=== PATIENT | female | born 1980 | race Caucasian/White ===

== ENCOUNTER 2017-09-02 19:04 | Emergency (ER) | payer MEDICAID ==
[~2017-09-02] VITALS: Ht 149.9 cm; Wt 67.8 kg
[~2017-09-02 19:04] MED LIST: ACETTAB3 OR; ALPRAZOLAM0.25 M1 PO; BACTRIM DS1 TAB PO; BACTROBAN21 EX; BC HEADACH1 OR; CEFTIN500 MG OR; CIPR1 PO; CIPRO500 MG OR; CIPROFLOXACN500 MG PO; CLONIDINE0.1 MG PO; DOXYCYC MONO100 MG OR; FLOXIN OTIC0.3 % OT; GLYBURIDE2.5 M1 PO; IMITREX100 M1 PO; IMITREX25 MG OR; KEFLEX500 MG PO; LORTAB 10 PO; LORTAB 5 OR; MACROBID100 MG PO; NIFEDIPINE OR; NO; NO HOME MEDS; PERCOCET 5/325M1 TAB OR; PRENATA3 OR; PYRIDIUM200 MG OR; ULTRAM50 M1 PO; ULTRAM50 MG PO; ZOLENE HC AD
[2017-09-02] MEDS ORDERED: PERCOCET 10/31 COMBO PO (19:16)
[2017-09-02] MEDS ORDERED: ZANTAC150 M1 PO (19:17)
[2017-09-02] MEDS ORDERED: ZITHROMAX500 MG PO (19:38)
[2017-09-02 19:40] VITALS: BP 145/87
== END 2017-09-02 19:40 | disposition home or self-care (01) | DRG 159 ==
LOC: ED 19:04
DX: K03.81 Cracked tooth (principal); O99.619 Diseases of the digestive system complicating pregnancy, unspecified trimester; K80.20 Calculus of gallbladder without cholecystitis without obstruction; O99.330 Smoking (tobacco) complicating pregnancy, unspecified trimester; F17.210 Nicotine dependence, cigarettes, uncomplicated; Z3A.00 Weeks of gestation of pregnancy not specified

== ENCOUNTER 2018-12-03 15:36 | Emergency (ER) | payer SELFPAY ==
[~2018-12-03] VITALS: Ht 149.9 cm; Wt 75.0 kg
[~2018-12-03 15:36] MED LIST changes: +PERCOCET 10/31 COMBO PO; +ZANTAC150 M1 PO; +ZITHROMAX500 MG PO
[2018-12-03 16:41] LABS: URINE BILIRUBIN - DIPSTICK NEGATIVE (NEGATIVE); URINE BLOOD DIPSTICK NEGATIVE (NEGATIVE); URINE COLOR YELLOW; URINE GLUCOSE - DIPSTICK NEGATIVE (NEGATIVE); URINE KETONE NEGATIVE (NEGATIVE); URINE LEUK ESTERASE NEGATIVE (NEGATIVE); URINE NITRITE - DIPSTICK NEGATIVE (Negative); URINE PH 5.5 (4.5-8.0); URINE PROTEIN - DIPSTICK NEGATIVE (NEG-TRACE); URINE SPECIFIC GRAVITY >=1.030; URINE UROBILINOGEN - DIPSTICK 0.2 E.U./dL (0.2)
[2018-12-03] MEDS ORDERED: ROBITUSSIN AC10 ML PO (17:32)
[2018-12-03] MEDS ORDERED: ZPAK PO (17:32)
[2018-12-03 17:49] VITALS: BP 167/80
== END 2018-12-03 17:50 | disposition home or self-care (01) | DRG 153 ==
LOC: ED 15:36
PROVIDERS: Emergency Medicine
DX: J06.9 Acute upper respiratory infection, unspecified (principal); F17.200 Nicotine dependence, unspecified, uncomplicated

== ENCOUNTER 2019-03-14 | Emergency (ER) | payer OTHER ==
[~2019-03-14] MED LIST changes: +ROBITUSSIN AC10 ML PO; +ZPAK PO
[2019-03-14] MEDS ORDERED: PRILOSEC20 MG/CAP PO (22:36)
[2019-03-14] MEDS ORDERED: ZESTRIL10 M1 PO (22:36)
[2019-03-16] MEDS ORDERED: CEPHALEXIN500 MG PO (12:23)
[2019-03-16] MEDS ORDERED: SINEQUAN25 MG PO (12:24)
[2019-03-16] MEDS ORDERED: PEPCID20 MG PO (12:25)
[2019-03-16] MEDS ORDERED: MOTRIN200 MG PO (12:26)
[2019-03-16] MEDS ORDERED: CLARITIN10 M1 PO (12:27)
[2019-03-16] MEDS ORDERED: BACTRIM DS1 TAB PO (12:28)
== END 2019-03-14 22:30 | DRG 603 ==
PROC: 0H96XZZ Drainage of Back Skin, External Approach (ICD-10-PCS; principal; 2019-03-14)
DX: L02.212 Cutaneous abscess of back [any part, except buttock and flank] (principal); L02.414 Cutaneous abscess of left upper limb; L02.413 Cutaneous abscess of right upper limb; F17.200 Nicotine dependence, unspecified, uncomplicated

== ENCOUNTER 2019-03-19 | Inpatient (IN) | payer OTHER ==
[2019-03-16] VITALS (10 sets, daily range): BP systolic 85–107; BP diastolic 49–72
--- NOTE | 2019-03-16 09:30 | NUR ---
REPORT RECEIVED FROM LISA FROM [facility].
--- NOTE | 2019-03-16 09:50 | NUR ---
PT AMBULATED TO MED/SURG ROOM 277 IN STABLE CONDITION ACCOMPANIED BY X1 GUARD.WRISTS AND ANKLES SHACKLED;PT A&O X4, ORIENTED TO ROOM AND CALL LIGHT SYSTEM;WT AND VS OBTAINED;PAIN SCALE AND REPORTING EDUCATED;PT REPORTS I&D TO UPPER BACK ABSCESS DONE Friday03/14/2019 IN ER BY , ACCORDING TO AI JOY NURSE SITE HAS GOTTEN WORSE AND PT IS STILL HAVING TEMPS;ASSESSMENT COMPLETED;RESPIRATIONS EVEN AND UNLABORED ON RA,CLEAR LUNG SOUNDS;ABDOMEN SOFT ON PALPATION AND ACTIVE IN ALL 4 QUADRANTS, PT UNAWARE OF LAST BM;STRONG PEDAL PULSES;DRESSING TO UPPER BACK REMAINS IN PLACE AND ACCORDING TO PT WAS PLACED TODAY 03/16/19;SKIN OTHERWISE INTACT;#20G TO RFA PLACED ON 4TH ATTEMPT BY JIM,KENDRA;NPO DIET REINFORCED AND PT VERBALIZES UNDERSTANDING;PT DENIES ANY ADDITIONAL NEEDS AT THIS TIME AND IS ENCOURAGED TO CALL FOR ASSISTANCE IF NEEDED;CALL LIGHT IN REACH;WILL CONTINUE TO MONITOR
--- NOTE | 2019-03-16 10:20 | NUR ---
CURRENTLY IN SURGERY.SPOKE WITH IWONA HASKINS REGARDING PT ARRIVING TO FLOOR. DIVINE TO NOTIFY OF PT STATUS.
--- NOTE | 2019-03-16 12:12 | NUR ---
PT RESTING IN SEMI FOWLERS POSITION;RESPIRATIONS EVEN AND UNLABORED ON RA;PT REQUESTS SOMETHING TO DRINK,NPO DIET REINFORCED;IV SITE PATENT;ASSESSMENT REMAINS UNCHANGED AT THIS TIME;ENCOURAGED TO CALL FOR ASSISTANCE IF NEEDED;CALL LIGHT IN REACH;WILL CONTINUE TO MONITOR
--- NOTE | 2019-03-16 12:50 | NUR ---
AT BEDSIDE DISCUSSING POC INCLUDING PLANS TO TAKE PT TO OR.
--- NOTE | 2019-03-16 13:10 | NUR ---
INFORMED CONSENT OBTAINED FOR INCISION AND DRAINAGE OF BACK.ALL BENEFITS AND RISKS DISCUSSED AND PT VERBALIZES UNDERSTANDING OF PROCEDURE.
--- NOTE | 2019-03-16 13:29 | NUR ---
PT TRANSPORTED TO OR IN STABLE CONDITION VIA [facility] ACCOMPANIED BY KENDRA ROJAS
--- NOTE | 2019-03-16 16:10 | NUR ---
PT ARRIVED BACK TO MED/SURG ROOM 277 IN STABLE CONDITION VIA STRETCHER ACCOMPANIED BY CELESTINO FORBES RN AND KENDRA NATARAJAN;PT AMBULATED WITH A STEADY GAIT TO BEDSIDE;VS OBTAINED AND TO BE OBTAINED PER [facility] POST OP PROTCOL,VS STABLE;RESPIRATIONS EVEN AND UNLABORED ON RA;IV SITE INFUSING LR @ 100ML/HR AND ABX HUNG AT THIS TIME;PT REPORTS MINIMAL PAIN TO UPPER BACK,PAIN SCALE AND REPORTING EDUCATED;DRESSING TO UPPER BACK CDI;FRESH WATER PROVIDED PER REQUEST;PT DENIES ANY ADDITIONAL NEEDS;ENCOURAGED TO CALL FOR ASSISTANCE IF NEEDED;CALL LIGHT IN REACH;WILL CONTINUE TO MONITOR
--- NOTE | 2019-03-16 20:00 | NUR ---
ASSESSMENT COMPLETED. IV SITE PATENT AND ORDERED IVF INFUSING WELL. DRESSING IS CDI TO UPPER MID BACK; B/P CHECKED AND 107/72 AT THIS TIME. PT. C/O BACK PAIN 09/16, WILL MEDICATE FOR PAIN WHEN PT. IS BACK TO BED. INCENTIVE SPIROMETER IN ROOM AND SCD'S APPLIED AT THIS TIME. ENCOURAGED TO DEEP BREATHE. GUARD IN THE ROOM. PT. TOLERATING DIET WELL. CALL LIGHT IS IN REACH.
--- NOTE | 2019-03-16 20:13 | NUR ---
PT. MEDICATED WITH ORDERED PRN DILAUDID AND ZOFRAN FOR C/O BACK PAIN 09/16 ALONG WITH SCHED MEDS. ADMINISTRERED BY PARUL MACEDO. WILL REASSESS.
--- NOTE | 2019-03-16 23:52 | NUR ---
PT. MEDDICATED WITH ORDERED/SCHEDULED TORADOL AND REPORTS PAIN 09/16, WILL REASSESS. DRESSING REMAINS CDI TO MID UPPER BACK. PO FLUIDS OFFERED. VSS. CALL LIGHT IS IN REACH.
[2019-03-17] VITALS (10 sets, daily range): BP systolic 74–124; BP diastolic 49–74
--- NOTE | 2019-03-17 02:33 | NUR ---
PT. C/O BACK PAIN 11/17 AND MEDICATED WITH ORDERED PRN DILAUDID; WILL REASSESS. ALSO REPORTS PAIN TO NECK AND WARM PACKS APPLIED. CALL LIGHT IS IN REACH. GUARD IS AT BEDSIDE.
--- NOTE | 2019-03-17 03:23 | NUR ---
PT. CONTINUES TO C/O UPPER BACK PAIN POST DILAUDID, MEDICATED WITH ORDERED PER PERCOCET, WILL REASSESS. PO FLUIDS OFFERED AND SNACK PROVIDED. CALL LIGHT IN REACH. GUARD AT BEDSIDE.
--- NOTE | 2019-03-17 07:10 | NUR ---
REPORT RECEIVED FROM KENDRA RUBI;PT APPEARS TO BE SLEEPING IN SUPINE POSITION WITH X1 GUARD AT BEDSIDE AND LEGS SHACKLED TO BEDSIDE;RESPIRATIONS EVEN AND UNLABORED ON RA;NO S/S OF DISTRESS NOTED;IV FLUIDS INFUSING WITH EASE PER ORDER;ALL SAFETY PRECAUTIONS IN PLACE WITH BED IN THE LOWEST POSITION AND CALL LIGHT IN REACH;WILL CONTINUE TO MONITOR
--- NOTE | 2019-03-17 09:00 | NUR ---
PT RESTING IN SEMI FOWLERS POSITION WITH X1 GUARD AT BEDSIDE AND ANKLES SHACKLED TO BEDSIDE,A&O X3;VS OBTAINED AND ASSESSMENT COMPLETED,CURRENT BP 85/58 HR 89.MD TO BE NOTIFIED;PT REPORTS UPPER BACK PAIN RATING 9/10 ON THE PAIN SCALE AND REQUESTS PAIN MEDICATION,PT MEDICATED WITH PRN MOTRIN 600MG PO FOR PAIN AT THIS TIME;RESPIRATIONS EVEN AND UNLABORED ON RA,CLEAR LUNG SOUNDS;ABDOMEN SOFT ON PALPATION AND ACTIVE IN ALL 4 QUADRANTS, PRUNE JUICE PROVIDED;STRONG PEDAL PULSES;PT IS POST OP I&D UPPER BACK ABCESS,DRESSINGS CHANGED AT THIS TIME PER ORDER;#20G TO RFA INFUSING D5 1/2 NS @ 100ML/HR,SITE APPEARS HEALTHY;PT DENIES ANY ADDITIONAL NEEDS AND IS ENCOURAGED TO CALL FOR ASSISTANCE IF NEEDED;CALL LIGHT IN REACH;WILL CONTINUE TO MONITOR
--- NOTE | 2019-03-17 10:13 | NUR ---
PT CURRENT BP 82/59 HR 103 AND PT REPORTING SEVERE BACK PAIN;CALLED 'S OFFICE AND SPOKE WITH TITA REGARDING PT BP;AWAITING CALL BACK;WILL CONTINUE TO MONITOR
--- NOTE | 2019-03-17 10:15 | NUR ---
BP RE-CHECK 82/59 HR 103, NOTIFIED AND NEW ORDERS RECEIVED.
--- NOTE | 2019-03-17 12:10 | NUR ---
PT RESTING IN SEMI FOWLERS POSITION WITH X1 GUARD AT BEDSIDE;RESPIRATIONS EVEN AND UNLABORED ON RA;PT REPORTS UPPER BACK PAIN RATING 10/10 ON THE PAIN SCALE,PT MEDICATED WITH SCHEDULED TORADOL PER ORDER;BP CURRENTLY 86/54 HR 94;IV FLUIDS INFUSING TO RFA WITH EASE;DRESSING CDI;ADDITIONAL PILLOW PROVIDED PER REQUEST;ENCOURAGED TO CALL FOR ASSISTANCE IF NEEDED;CALL LIGHT IN REACH;WILL CONTINUE TO MONITOR
--- NOTE | 2019-03-17 13:36 | NUR ---
PT CURRENT BP 74/50, ASYMPTOMATIC TO LOW BP; NOTIFIED AND ORDERS OBTAINED FOR STAT CHEST CT AND TO CONSULT ;WILL CONTINUE TO MONITOR
--- NOTE | 2019-03-17 14:00 | NUR ---
PT TRANSPORTED TO [facility] IN STABLE CONDITON VIA WHEELCHAIR ACCOMPANIED BY VOLUNTEER AND GUARD.
--- NOTE | 2019-03-17 14:20 | NUR ---
PT TRANSPORTED BACK TO MED/SURG ROOM 277 IN STABLE CONDITION VIA WHEELCHAIR ACCOMPANIED BY VOLUNTEER AND GUARD.
--- NOTE | 2019-03-17 15:15 | NUR ---
PT RESTING IN SEMI FOWLERS POSITION WITH GUARD AT BEDSIDE;RESPIRATIONS EVEN AND UNLABORED ON RA;PT DENIES ANY CURRENT NEEDS;IV FLUIDS BEING BOLUSED TO RFA PER ORDER;GREY CATHETER INITIATED AT THIS TIME AND PT TOLERATED WELL;NPO DIET REINFORCED;VS IMPROVING BP 93/60;PT DENIES ANY ADDITIONAL NEEDS AND IS ENCOURAGED TO CALL FOR ASSISTANCE IF NEEDED;CALL LIGHT IN REACH;WILL CONTINUE TO MONITOR
--- NOTE | 2019-03-17 20:33 | NUR ---
PT MEDICATED ORDERS PROVIDE AND ASSESSMENT COMPLETED. PT REPORTS PAIN 8/10 IN UPPER BACK SHARP/STABBING. PT ASKING FOR MORE JUICE/JELLOW FOR CLEAR LIQUID DIET/PROVIDED. NO S/O IDSTRESS NOTED. GUARD X1 AT BEDSIDE AND TV ON. IV SITE APPEARS HEALTHY AT THIS TIME 20 TO RFA W/ANTIBOITIC THERAPY RUNNIING. GREY CATHETER DRAINING TO GRAVITY CLEAR YELLOW. PT REPORTS BM X1 LARGE SEVERAL HOURS AGO.
--- NOTE | 2019-03-17 23:57 | NUR ---
PT MEDICATED W/IV ANTIBIOTIC THERAPY. PT WAS SLEEPING SOUNDLY. NO S/O DISTRESS NOTED. CALL LIGHT AT SIDE.
--- NOTE | 2019-03-18 00:30 | NUR ---
IV SITE FOUND INFILTRATED. PT DENIES PAIN AT SITE. SITE APPEARS SLIGHTLY REDDENED AND SMALL AMOUNT OF EDEMA AT SITE.
--- NOTE | 2019-03-18 01:10 | NUR ---
MULTIPLE ATTEMPTS HAVE BEEN MADE TO OBTAIN IV SITE, WILL NOTIFY PAPER REWINDER OPERATOR FOR ASSISTANCE.
--- NOTE | 2019-03-18 02:15 | NUR ---
REGIONAL TRANSPORTATION MANAGER IN TO OBTAIN IV SITE.
--- NOTE | 2019-03-18 02:41 | NUR ---
MAINTENANCE PORTER AND ED NURSE IN W/PT ATTEMPTING TO OBTAIN IV SITE.
[2019-03-18 03:46] VITALS: BP 119/79
--- NOTE | 2019-03-18 04:09 | NUR ---
PT MEDICATED FOR PAIN AND IV ANTIBIOTIC THERAPY. PT ASKING FOR COFFEE/PROVIDED. REPORTS PAIN 10/10 ON PAIN SCALE.
[2019-03-18 05:08] LABS: IMMATURE GRANULOCYTES 0.7 % (0.0-5.0); MEAN CORPUSCULAR HGB 27.1 pG CALC (26.0-32.0); MEAN CORPUSCULAR HGB CONC 31.5 g/L CALC (32.0-36.0); NEUT# 5.69 thou/uL (2.00-7.15); RED BLOOD COUNT 3.43 mill/uL (4.20-5.60); RED CELL DISTRI WIDTH 15.9 % (11.5-15.5)
[2019-03-18 05:13] LABS: HEMATOCRIT 29.5 % (37.0-47.0); HEMOGLOBIN 9.3 g/dl (12.0-16.0)
[2019-03-18 05:16] LABS: ANION GAP 14 (6-22 (CALC)); BUN 10 mg/dL (7-17); BUN/CREATININE RATIO 16 (12-20 (CALC)); CARBON DIOXIDE 21 mmol/l (22-30); CHLORIDE 107 mmol/l (95-108); CREATININE 0.6 mg/dL (0.5-1.0); GFR > 60 ML/MIN (>=60 (CALC)); GFR FOR AFR.AMER. > 60 ML/MIN (>=60 (CALC)); POTASSIUM 4.9 mmol/l (3.5-5.1); SODIUM 138 mmol/l (137-146)
--- NOTE | 2019-03-18 05:47 | NUR ---
PT MEDICATED W/PAIN MEDICATION ORDERS PROVIDE. DRESSING CHANGE TO WOUND ON MID UPPER BACK. PT TOLERATED WELL, BUT W/QUITE A BIT OF PAIN UPON DRESSING CHANGE. PT AMBULATED TO RESTROOM TO WASH FACE AND BRUSH TEETH. NEW GUARD X1 AT BEDSIDE.
[2019-03-18 08:00] VITALS: BP 92/60
[2019-03-18 10:40] VITALS: BP 112/73
[2019-03-18 14:50] VITALS: BP 127/74
[2019-03-18 19:48] VITALS: BP 139/93
--- NOTE | 2019-03-18 22:13 | NUR ---
PT MEDICATED FOR PAIN AND PM MEDICATIONS. ASSESSMENT COMPLETED AT THIS TIME. DRESSING TO MID UPPER BACK CDI. PT REFUSED DRESSING CHANGE AT THIS TIME. WILL DISCUSS CHANGING LATER. PT STATED, "THEY CHANGED IT TWICE TODAY ALREADY." IV ANTIBIOTIC RUNNING AT THIS TIME. SNACKS/DRINKS PROVIDE.
[~2019-03-19] MED LIST changes: +CEPHALEXIN500 MG PO; +CLARITIN10 M1 PO; +MOTRIN200 MG PO; +PEPCID20 MG PO; +PRILOSEC20 MG/CAP PO; +SINEQUAN25 MG PO; +ZESTRIL10 M1 PO
--- NOTE | 2019-03-19 00:40 | NUR ---
PT SLEEPING AT THIS TIME. GUARD X1 AT BEDSIDE.
[2019-03-19 03:53] VITALS: BP 126/86
--- NOTE | 2019-03-19 03:54 | NUR ---
PT SLEEPING SOUNDLY I ENTERED THE ROOM GUARD X1 AT BEDSIDE. ANTIBIOTIC THERAPY ADMINISTERED, UPON INITIAL FLUSH PT C/O BURNING, NO BLOOD RETURNED RECEIVED, REDNESS AT SITE. SITE REMOVED. WILL CALL TO GET ASSISTANCE W/OBTAINING NEW IV SITE. PT WAS A VERY DIFFICULT STICK PREVIOUS NIGHT W/MULTIPLE ATTEMPTS BY STAFF NECESSARY. IV ANTIBIOTIC THERAPY HELD AT THIS TIME AWAITING GOOD IV SITE ACCESS.
--- NOTE | 2019-03-19 05:38 | NUR ---
NEW IV SITE OBTAINED 22 R.THUMB. IV ANTIBIOTIC THERAPY ADMINISTERED AT THIS TIME. PT MEDICATED FOR PAIN 10/10 IN UPPER BACK AND HEAD. PT C/O MIGRAINE HEADACHE.
[2019-03-19 05:43] LABS: HEMATOCRIT 29.8 % (37.0-47.0); HEMOGLOBIN 9.5 g/dl (12.0-16.0); MEAN CELL VOLUME 84.7 fL CALC (80.0-100.0); MEAN CORPUSCULAR HGB CONC 31.9 g/L CALC (32.0-36.0); RED BLOOD COUNT 3.52 mill/uL (4.20-5.60); RED CELL DISTRI WIDTH 15.6 % (11.5-15.5)
[2019-03-19 08:15] VITALS: BP 98/58
[2019-03-19 15:49] VITALS: BP 119/80
--- NOTE | 2019-03-19 18:37 | NUR ---
Pt continues to c/o of migraine, stating that she "feels pressure" regardless of position. PRN pain meds administered. Discussed with FAMILY LITERACY COORDINATOR additional medication need, will f/u.
[2019-03-19 18:52] VITALS: BP 125/79
--- NOTE | 2019-03-19 19:00 | NUR ---
REPORT RECEIVED FROM KENDRA COLLINS. PT RESTING IN BED. NO S/S OF DISTRESS AT THIS TIME. WILL CONTINUE TO MONITOR.
--- NOTE | 2019-03-19 20:19 | NUR ---
PT RESTING IN BED ALERT AND ORIENTED. RESPIRATIONS ARE ENVEN AND UNLABOREDON RA. LUNGS SOUND CLEAR. PEDAL PULSES WEAK. PT REPORTS HAVING A HEAD ACHE RATING HER PAIN 8/10 STATING IN FEELS LIKE PRESSURE IN HER HEAD. PT MEDICATED PER EMAR ORDERS. OFFICER X1 AT BEDSIDE, PT FROM THE DETENTION. SAFETY PRECAUTIONS IN PLACE. WILL CONTINUE TO MONITOR.
--- NOTE | 2019-03-19 21:45 | NUR ---
PT RESTING IN BED. DRESSING CHANGED PER ORDERS. PT TOLERATED WELL. CALL BAILEY WITHIN REACH. OFFICER X1 AT BED SIDE. SAFETY PRECAUTIONS IN PLACE.
--- NOTE | 2019-03-20 00:25 | NUR ---
PT RESTING IN BED. PT REPORTS HAVING PAIN OF 5/10. PT MEDICATED VT EMAR ORDERS. OFFICER AT BEDSIDE. SAFETY PRECAUTIONS IN PLACE. WILL CONTINUE TO MONITOR.
[2019-03-20 04:00] VITALS: BP 107/73
--- NOTE | 2019-03-20 04:00 | NUR ---
PT RESTING IN BED. RESPIRATIONS EVEN AND UNLABORED ON RA. NO S/S OF DISTRESS AT THIS TIME. WILL CONTINUE TO MONITOR.
[2019-03-20 05:37] LABS: HEMATOCRIT 32.4 % (37.0-47.0); HEMOGLOBIN 10.2 g/dl (12.0-16.0); IMMATURE GRANULOCYTES 2.6 % (0.0-5.0); MEAN CORPUSCULAR HGB 26.8 pG CALC (26.0-32.0); MEAN CORPUSCULAR HGB CONC 31.5 g/L CALC (32.0-36.0); NEUT# 3.88 thou/uL (2.00-7.15); RED BLOOD COUNT 3.81 mill/uL (4.20-5.60); RED CELL DISTRI WIDTH 15.5 % (11.5-15.5)
[2019-03-20 07:52] VITALS: BP 130/85
--- NOTE | 2019-03-20 07:52 | NUR ---
PT RESTING IN BED, NO SIGNS OF DISTRESS NOTED. RESP EVEN AND UNLABORED. PT EATING BREAKFAST. VOICES NO NEEDS OR COMPLAINTS AT THIS TIME. VITALS OBTAINED, CALL LIGHT IN REACH,CONTINUE TO MONITOR.
--- NOTE | 2019-03-20 08:35 | NUR ---
PT RESTING IN BED, DISCUSSED POC, MEDICATED PER MAY. PT ALERT AND ORIENTED X3, NO EDEMA. DISCUSSED DRESSING CHANGE, PT AGREES. X2 INCISIONS TO UPPER BACK, NOTED PURULENT DRAINAGE TO GAUZE, PACKED WOUNDS WITH NEW DRY GAUZE, PT TOLERATED WELL. SECURED WITH ABD AND TAPE. PT REQUESTING PAIN MEDICATION. WILL RETURN WITH PAIN MED. CALL LIGHT IN REACH, GAURD AT BEDSIDE. CONTINUE TO MONITOR.
[2019-03-20] MEDS ORDERED: CLINDAMYCIN HC150 MG PO (12:04)
--- NOTE | 2019-03-20 14:29 | NUR ---
Discharge instructions given. Patient verbalizes understanding of same. Dis[facility]. All belongings sent with pt.
--- NOTE | 2019-03-20 14:34 | NUR ---
REPORT GIVEN TO NURSE PALMA IN MEDICAL AT [facility].
== END 2019-03-20 12:26 | DRG 581 ==
PROVIDERS: Nurse Practitioner Family; ADMIT Surgery
PROC: 0J970ZZ Drainage of Back Subcutaneous Tissue and Fascia, Open Approach (ICD-10-PCS; principal; 2019-03-16)
PROC: 0T9B70Z Drainage of Bladder with Drainage Device, Via Natural or Artificial Opening (ICD-10-PCS; 2019-03-17)
DX: L02.212 Cutaneous abscess of back [any part, except buttock and flank] (principal); I10 Essential (primary) hypertension; I95.81 Postprocedural hypotension; R33.8 Other retention of urine; G43.909 Migraine, unspecified, not intractable, without status migrainosus; B95.62 Methicillin resistant Staphylococcus aureus infection as the cause of diseases classified elsewhere; Z87.891 Personal history of nicotine dependence
CPT/HCPCS: J0131; J1650

== ENCOUNTER 2023-11-22 23:45 | Emergency (ER) | payer OTHER, MEDICAID ==
[~2023-11-22] VITALS: Ht 149.9 cm; Wt 72.0 kg
[~2023-11-22 23:45] MED LIST changes: +CLINDAMYCIN HC150 MG PO
[2023-11-22 23:51] VITALS: BP 127/82
[2023-11-22] MEDS ORDERED: IBUPROFEN 800 MG/TAB PO ONE (23:55)
[2023-11-22] MEDS ORDERED: SUMAtriptan SUCCINATE 25 MG TAB PO ONE (23:55)
[2023-11-22] MEDS ORDERED: GUAIFENESIN 600 MG/TAB PO ONE (23:55)
[2023-11-22] MEDS ORDERED: MOTRIN800 MG PO (23:59)
[2023-11-22] MEDS ORDERED: NASACORT A55 MCG/ACT NS (23:59)
[2023-11-22] MEDS ORDERED: CLARITIN-D1 TAB PO (23:59)
[2023-11-23] VITALS: BP 129/70
[2023-11-23 00:15] VITALS: BP 126/85
[2023-11-23 00:25] VITALS: BP 126/85
== END 2023-11-23 00:30 | disposition home or self-care (01) | DRG 153 ==
LOC: ED 23:45
DX: J01.90 Acute sinusitis, unspecified (principal); I10 Essential (primary) hypertension

== ENCOUNTER 2024-05-27 13:23 | Emergency (ER) | payer OTHER ==
[~2024-05-27] VITALS: Ht 149.9 cm; Wt 68.0 kg
[2024-05-27] VITALS (20 sets, daily range): BP systolic 90–138; BP diastolic 51–96
[~2024-05-27 13:23] MED LIST changes: +ADVAIR DISK1 INH; +ATORVASTATIN CA10 MG PO; +CLARITIN-D1 TAB PO; +IMITREX100 MG PO; +MOTRIN800 MG PO; +NASACORT A55 MCG/ACT NS; +PREDNISONE50 MG PO; +VIBRAMYCIN100 M2 PO
[2024-05-27] MEDS ORDERED: KETOROLAC TROMETHAMINE 30 MG/ML SDV IV ONE (15:15)
[2024-05-27] MEDS ORDERED: SODIUM CHLORIDE 0.9% 1,000 ML IV ONE (15:15)
[2024-05-27] MEDS ORDERED: ORPHENADRINE CITRATE 30 MG/ML AMP IV ONE (15:15)
[2024-05-27] MEDS ORDERED: ONDANSETRON HCl 4 MG/2 ML SDV IV ONE (15:15)
[2024-05-27 15:45] LABS: BASO% 0.6 % (0-3); EOS% 9.2 % (0-8); IMMATURE GRANULOCYTES 0.1 % (0.0-5.0); LYMPH% 15.4 % (15-41); MEAN CORPUSCULAR HGB 26.2 pG CALC (26.0-32.0); MEAN CORPUSCULAR HGB CONC 31.9 g/dL CAL (32.0-36.0); MONO% 4.2 % (2-13); NEUT# 5.04 thou/uL (2.00-7.15); NEUT% 70.5 % (42-76); RED BLOOD COUNT 6.07 mill/uL (4.20-5.60); RED CELL DISTRI WIDTH 14.5 % (11.5-15.5)
[2024-05-27 15:48] LABS: HEMATOCRIT 49.8 % (37.0-47.0); HEMOGLOBIN 15.9 g/dl (12.0-16.0)
[2024-05-27 15:50] LABS: URINE BLOOD DIPSTICK Negative (NEGATIVE); URINE GLUCOSE - DIPSTICK 100 mg/dL (NEGATIVE); URINE KETONE 15 mg/dL (NEGATIVE); URINE LEUK ESTERASE Negative (NEGATIVE); URINE NITRITE - DIPSTICK Negative (Negative); URINE PH 5.5 (4.5-8.0); URINE PROTEIN - DIPSTICK 100 mg/dL (NEG-TRACE); URINE SPECIFIC GRAVITY 1.025
[2024-05-27 15:51] LABS: URINE COLOR Amber
[2024-05-27 15:59] LABS: URINE CALCIUM OXALATE CRYSTALS FEW lpf; URINE RENAL EPITHELIAL CELLS FEW hpf; URINE TRANSITIONAL EPI. CELLS FEW hpf
[2024-05-27 16:00] LABS: URINE BACTERIA FEW hpf; URINE RBC 0-2 RBC/hpf (0-5); URINE SQUAMOUS EPITHELIAL CELL FEW EPI/hpf (0-FEW)
[2024-05-27 16:01] LABS: URINE COARSE GRANULAR CAST FEW lpf; URINE FINE GRAN CAST FEW lpf; URINE HYALINE CAST MANY lpf (NONE-RARE)
[2024-05-27 16:05] LABS: ALBUMIN 5.1 g/dL (3.2-5.0); CREATININE 0.8 mg/dL (0.5-1.0); POTASSIUM 3.8 mmol/l (3.5-5.1); TOTAL PROTEIN 9.6 g/dL (6.3-8.2)
[2024-05-27 16:06] LABS: BILIRUBIN, TOTAL 1.1 mg/dL (0.02-1.3)
[2024-05-27] MEDS ORDERED: MORPHINE SULFATE 4 MG/ML VIAL IV ONE (17:55)
[2024-05-27] MEDS ORDERED: PROGESTERONE200 MG PO (19:26)
[2024-05-27] MEDS ORDERED: METHOCARBAMOL500 MG PO (19:26)
[2024-05-27] MEDS ORDERED: NAPROXEN500 MG PO (19:26)
[2024-05-27] MEDS ORDERED: NITROFURANTOIN100 M1 PO (19:26)
== END 2024-05-27 20:00 | disposition home or self-care (01) | DRG 563 ==
LOC: ED 13:23
PROVIDERS: Nurse Practitioner
DX: S39.012A Strain of muscle, fascia and tendon of lower back, initial encounter (principal); N39.0 Urinary tract infection, site not specified; N93.8 Other specified abnormal uterine and vaginal bleeding; B19.20 Unspecified viral hepatitis C without hepatic coma; R74.8 Abnormal levels of other serum enzymes; I10 Essential (primary) hypertension; F17.200 Nicotine dependence, unspecified, uncomplicated; W19.XXXA Unspecified fall, initial encounter; Z20.822 Contact with and (suspected) exposure to COVID-19
CPT/HCPCS: J2360; J2405; Q9967

== ENCOUNTER 2024-06-05 21:15 | Emergency (ER) | payer OTHER ==
[~2024-06-05] VITALS: Ht 149.9 cm; Wt 68.0 kg
[~2024-06-05 21:15] MED LIST changes: +METHOCARBAMOL500 MG PO; +NAPROXEN500 MG PO; +NITROFURANTOIN100 M1 PO; +PROGESTERONE200 MG PO
[2024-06-05 21:35] VITALS: BP 151/103
[2024-06-05] MEDS ORDERED: SUMAtriptan SUCCINATE 25 MG TAB PO ONE (21:35)
[2024-06-05] MEDS ORDERED: SUMAtriptan SUCCINATE 6 MG/0.5 ML SDV SC ONE (21:35)
[2024-06-05 21:45] VITALS: BP 154/86
[2024-06-05 21:47] VITALS: BP 154/86
== END 2024-06-05 22:04 | disposition home or self-care (01) | DRG 103 ==
LOC: ED 21:15
DX: G43.909 Migraine, unspecified, not intractable, without status migrainosus (principal); I10 Essential (primary) hypertension; F32.A Depression, unspecified; F17.200 Nicotine dependence, unspecified, uncomplicated
CPT/HCPCS: J3030